=== PATIENT | female | born 1985 | race Two or more races ===

== ENCOUNTER 2025-03-21 07:47 | Emergency (ER) | payer MEDICAID, OTHER ==
[~2025-03-21] VITALS: Ht 162.6 cm; Wt 71.2 kg
--- NOTE | 2025-03-21 08:31 | ED.PDOC ---
HPI (NEURO) HPI Comments 40-year-old female presents to the ED for chief complaint of twitching to the left side of the face the sudden last night back has become more persistent this morning. Patient reports that she has multiple stressors saw home, states she has an autistic son at home in which she cares for and has no help. She reports minimal sleep, mentions she wakes up every other hour has not had a full 8 hours asleep a years. She presents emotional states that she feels very tired. She denies any chest pain, palpitations, shortness a breath, vision changes, facial drooping, numbness, tingling sensation, or confusion. She is ambulatory upon presentation no difficulty noted. Patient is a healthy individual who states she is active, works out and eats healthy. She denies any medical history or allergies. Chief Complaint: Face pain Time Seen by MD: 08:18 Reviewed Notes: Nurses Notes, Medications, Allergies Information Source: Patient Mode of Arrival: Ambulatory Severity: Moderate Timing: Hours Duration: Since onset Onset: At rest Circumstances: Spontaneous Associated Signs and Symptoms: Other Past Medical History PAST MEDICAL HISTORY: Denies Surgical History: Denies all surgeries PEDIATRIC OCCUPATIONAL THERAPIST History: No Pertinent PEDIATRIC OCCUPATIONAL THERAPIST History Family History Family History: Reviewed,noncontributory to illness Social History Smoker: Non-Smoker Alcohol: Denies ETOH Use Drugs: Denies Drug Use Lives In: Home Constitutional: denies: chills, diaphoresis, fatigue, fever, malaise, sweats, weakness, others EENTM: denies: blurred vision, double vision, ear bleeding, ear discharge, ear drainage, ear pain, ear ringing, eye pain, eye redness, hearing loss, mouth pain, mouth swelling, nasal discharge, nose bleeding, nose congestion, nose pain, photophobia, tearing, throat pain, throat swelling, voice changes, others Respiratory: denies: cough, hemoptysis, orthopnea, SOB at rest, shortness of breath, SOB with excertion, stridor, wheezing, others Cardiovascular: denies: chest pain, dizzy spells, diaphoresis, Dyspnea on exertion, edema, irregular heart beat, left arm pain, lightheadedness, palpitations, PND, syncope, others Gastrointestinal: denies: abdomen distended, abdominal pain, blood streaked bowels, constipated, diarrhea, dysphagia, difficulty swallowing, hematemesis, melena, nausea, poor appetite, poor fluid intake, rectal bleeding, rectal pain, vomiting, others Neurological: reports: others (facial twitching (left sided) ); denies: dizziness, fainting, headache, left sided numbness, left sided weakness, numbness, paresthesia, pre-existing deficit, right sided numbness, right sided weakness, seizure, speech problems, tingling, tremors, weakness Musculoskeletal: denies: back pain, gout, joint pain, joint swelling, muscle pain, muscle stiffness, neck pain, others Integumetry: denies: bruises, change in color, change in hair/nails, dryness, laceration, lesions, lumps, rash, wounds, others Allergic/Immunocompromised: denies: Difficulty Healing, Frequent Infections, Hives, Itching, others Hematologic/Lymphatic: denies: anemia, blood clots, easy bleeding, easy bruising, swollen glands, others Endocrine: denies: excessive hunger, excessive sweating, excessive thirst, excessive urination, flushing, intolerance to cold, intolerance to heat, unexplained weight gain, unexplained weight loss, others Psychiatric: denies: anxiety, bipolar disorder, depression, hopeless, panic disorder, schizophrenia, sleepless, suicidal, others All Other Systems: Reviewed and Negative Physical Exam General Appearance: Moderate Distress HEENT: Normal ENT Inspection, Pharynx Normal, TMs Normal Neck: Full Range of Motion, Non-Tender, Normal, Normal Inspection Respiratory: Chest Non-Tender, Lungs Clear, No Accessory Muscle Use, No Respiratory Distress, Normal Breath Sounds Cardiovascular: No Edema, No JVD, No Murmur, No Gallop, Normal Peripheral Pulses, Regular Rate/Rhythm Breast Exam: Deferred Gastrointestinal: No Organomegaly, Non Tender, No Pulsatile Mass, Normal Bowel Sounds, Soft Genitalia: Deferred Pelvic: Deferred Rectal: Deferred Extremities: No calf tenderness, Normal capillary refill, Normal inspection, Normal range of motion, Non-tender, No pedal edema Musculoskeletal : Apperance: Normal Neurologic: Alert, 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 Was a procedure done?: No Differential Diagnosis (SZ) Seizure: Psychogenic Seizure, Anticonvulsant Withdrawl, CVA/TIA General Weakness: Dehydration, Electrolyte imbalance, Hypovolemia, Meniere's disease, TIA X-Ray, Labs, Meds, VS Vital Signs Date Time Temp Pulse Resp B/P (MAP) Pulse Ox O2 Delivery O2 Flow Rate FiO2 03/21/25 08:41 97.7 87 16 104/82 (89) 97 97.7 03/21/25 08:34 Room Air* 0 21 03/21/25 07:50 98.7 97 16 141/91 98 98.7 Current Medications Medications (Trade) Dose Ordered Sig/Juanito Route Start Time Stop Time Status Last Admin Lorazepam (Ativan Tablet) 1 mg ONCE ONCE PO 03/21/25 08:30 03/21/25 08:31 DC 03/21/25 08:38 Patient alert. Came in because of numbness in the right side of the face. Neurological examination is pristine. Vitals stable. Answering questions. Was given Ativan. Physical examination pristine. CT of the head reviewed does not show any acute changes. Explained to the patient. Was told to follow up with her primary care physician. Was told to come back if there is any problem. Time of 1ST Reevaluation: 08:30 Reevaluation 1ST: Unchanged Patient Education/Counseling: Diagnosis, Treatment, Prognosis Family Education/Counseling: No Family Present Departure 1 Departure Time of Disposition: 08:55 Impression: Primary Impression: Anxiety Disposition: 01 HOME / SELF CARE / HOMELESS Condition: Good e-Prescriptions Lorazepam (Ativan) 0.5 Mg Tab 1 TAB PO DAILY for 5 Days, #5 TAB Prov: KENDRA JEAN MD 03/21/25 Discharged With: Self Critical Care Note Critical Care Time?: No Stability Stability form required: No I personally scribed for KENDRA JEAN MD ([email or web address]) on 03/21/25 at 08:30. Electronically submitted by Camila Mcclain ([facility]). KENDRA JEAN MD Mar 21, 2025 08:30
[2025-03-21] MEDS: LORazepam 0.5 MG TAB PO ONE (08:38)
[2025-03-21 08:41] VITALS: BP 104/82; PULSE 87; RESP 16; TEMP 97.7; O2SAT 97
[2025-03-21] MEDS ORDERED: LORA-655 PO (08:55)
--- NOTE | 2025-03-21 09:02 | DVH ---
CLINICAL HISTORY: tia TECHNIQUE: Helical imaging carried out from skull base to vertex without intravenous contrast. This exam was performed according to our departmental dose optimization program. Up-to-date CT equipment and radiation dose reduction techniques are utilized as appropriate. CTDIVol: 54.12 mGy DLP: 956.73 mGy-cm WID: COMPARISON: None FINDINGS: The ventricles and subarachnoid spaces are normal in size and configuration. There is no midline shift or mass effect. The benz white matter interfaces are maintained. The basal cisterns are patent. There is no evidence of acute intracranial hemorrhage or extra-axial fluid collection. The mastoid air cells and visualized paranasal sinuses are well-aerated. IMPRESSION: 1. No acute intracranial abnormality.
== END 2025-03-21 09:16 | disposition home or self-care (01) ==
LOC: ER 07:47
DX: F41.9 Anxiety disorder, unspecified (principal); R42 Dizziness and giddiness; Z79.899 Other long term (current) drug therapy
CPT/HCPCS: 70450